=== PATIENT | female | born 1985 ===

== ENCOUNTER 2020-08-12 21:29 | Outpatient (REF) | payer OTHER, SELFPAY ==
[2020-08-14 00:33] LABS: COVID-19 RT-PCR Result NEGATIVE (Negative)
== END 2020-08-12 21:49 ==
LOC: NCHCN 21:29
PROVIDERS: PCP Physician Assistant Medical; Visit Provider Physician Assistant Medical
DX: Z11.59 Encounter for screening for other viral diseases (principal)
CPT/HCPCS: U0003